=== PATIENT | male | born 1990 | race Caucasian/White ===

== ENCOUNTER → 2020-07-05 | Outpatient (CLI) | payer OTHER | LOC: KOH-I 16:14 | DX: M79.642 Pain in left hand (principal); M79.645 Pain in left finger(s); M25.571 Pain in right ankle and joints of right foot; M20.11 Hallux valgus (acquired), right foot; M85.842 Other specified disorders of bone density and structure, left hand | CPT/HCPCS: 73130; 73610; 73630 ==